=== PATIENT | female | born 1965 | race Caucasian/White ===

== ENCOUNTER → 2018-03-03 | Outpatient (CLI) | payer OTHER ==
[~2018-03-03] MED LIST: CALCIUM VIT D; FLAXSEED OIL; MTR600X PO; MULT-506 PO; OPTIRAY 320 IV PRN; OXYC-643 PO
--- NOTE | 2018-03-03 19:02 | DIAGNOSTIC IMAGING REPORT ---
ABDOMEN AND PELVIS CT WITH IV AND ORAL CONTRAST CT DOSE: 330.26 mGy.cm HISTORY: Generalized abdominal pain. TECHNIQUE: Multiaxial CT images of the abdomen and pelvis were performed following the use of intravenous and oral contrast. A dose lowering technique was utilized adhering to the principles of ALARA. COMPARISON STUDY: Abdomen and pelvis CT 07/28/2012. FINDINGS: The lung bases are clear. No pneumoperitoneum. No pneumatosis. No suspicious lytic or blastic osseous lesions. Cholecystectomy. Stable mild bile duct dilatation. The pancreas, spleen, and adrenal glands are unremarkable. Punctate stone within the lower pole of the left kidney. No ureteral stones. No hydronephrosis. Multiple hepatic and renal hypodense lesions are again noted. Some of these have increased in size. Dominant lesion within the right hepatic lobe measures 7.4 cm, previous measuring 4.1 cm. These favor cysts. No retroperitoneal lymphadenopathy. Tiny fat-containing umbilical hernia. Hysterectomy. Normal bladder. Trace pelvic free fluid. No bowel wall thickening or obstruction. Normal appendix. Decrease in size in the 2 cm right ovarian hypodense lesion. This is located inferior to the cecum. IMPRESSION: 1. No bowel wall thickening or obstruction. 2. Normal appendix. 3. Cholecystectomy. 4. Trace pelvic free fluid. 5. Left-sided nephrolithiasis. No ureteral stones. No hydronephrosis. 6. Multiple hypodense lesions seen scattered throughout the liver and kidneys. These likely represent cysts. Electronically signed by: Sherman Westbrook M.D. 03/03/2018 7:01 PM Dictated Date/Time: 03/03/2018 6:51 PM
== END | disposition home or self-care (01) ==
LOC: C.CTS 16:21
PROVIDERS: ATTEND Family Medicine
DX: R10.32 Left lower quadrant pain (principal); R50.9 Fever, unspecified; R19.7 Diarrhea, unspecified; N20.0 Calculus of kidney